=== PATIENT | female | born 1970 | race Caucasian/White ===

== ENCOUNTER → 2017-02-28 | Outpatient (CLI) | payer MEDICARE, MEDICAID | LOC: AMSURD 11:44 | DX: Z01.818 Encounter for other preprocedural examination (principal); F84.0 Autistic disorder; K03.3 Pathological resorption of teeth ==

== ENCOUNTER → 2023-12-31 | Outpatient (CLI) | payer MEDICARE, MEDICAID ==
[2023-12-31 12:26] LABS: BASO # 0.03 K/mm3 (0.02-0.10); EOS % 2.3 % (1.0-5.0); HEMATOCRIT 39.5 % (37.0-47.0); HEMOGLOBIN 12.8 g/dL (12.5-16.0); LYMPH# 1.07 K/mm3 (1.50-4.00); MEAN CELL VOLUME 97 fl (78-100); MEAN CORPUSCULAR HEMOGLOBIN 31 pg (27-31); MEAN CORPUSCULAR HGB CONC 32 g/dL (33-37); MEAN PLATELET VOLUME 8.7 fl (7.4-10.4); MONO # 0.44 K/mm3 (0.20-0.80); NEU # 2.62 K/mm3 (1.40-6.50); PLATELET COUNT 154 K/mm3 (130-400); RED BLOOD COUNT 4.07 M/mm3 (4.10-5.30); RED CELL DISTRIBUTION WIDTH 13.3 % (11.5-14.5); WHITE BLOOD COUNT 4.3 K/mm3 (4.8-10.8)
[2023-12-31 12:34] LABS: ALBUMIN 4.5 g/dL (3.5-5.0)
[2023-12-31 12:35] LABS: CALCIUM 10.2 mg/dL (8.3-10.5)
[2023-12-31 12:36] LABS: TOTAL PROTEIN 7.3 g/dL (6.4-8.3); URINE APPEARANCE CLEAR (CLEAR); URINE COLOR YELLOW (YELLOW)
[2023-12-31 12:37] LABS: URINE BILIRUBIN NEGATIVE (NEGATIVE); URINE BLOOD NEGATIVE (NEGATIVE); URINE GLUCOSE NEGATIVE (NEGATIVE); URINE KETONE NEGATIVE (NEGATIVE); URINE LEUKOCYTE ESTERASE NEGATIVE (NEGATIVE); URINE NITRATE NEGATIVE (NEGATIVE); URINE PROTEIN(semi-quant) NEGATIVE (NEGATIVE)
[2023-12-31 12:38] LABS: TOTAL BILIRUBIN 0.2 mg/dL (0.2-1.2); URINE MUCUS PRESENT (NOT PRESENT)
[2023-12-31 12:42] LABS: PROTHROMBIN TIME 9.7 SECONDS (9.0-12.0)
[2023-12-31 12:43] LABS: MAGNESIUM 1.99 mg/dL (1.60-2.60)
[2023-12-31 22:11] LABS: FOLATE (FOLIC ACID) >20.0 ng/mL (2.0-20.0)
== END ==
LOC: LAB 11:57
PROVIDERS: Internal Medicine
DX: Z01.818 Encounter for other preprocedural examination (principal); K90.9 Intestinal malabsorption, unspecified; F31.60 Bipolar disorder, current episode mixed, unspecified; E78.2 Mixed hyperlipidemia; R73.9 Hyperglycemia, unspecified